=== PATIENT | male | born 1970 | race Two or more races ===

== ENCOUNTER 2017-09-14 12:00 | Emergency (ER) | payer MEDICAID ==
[~2017-09-14] VITALS: Ht 177.8 cm; Wt 90.7 kg
[~2017-09-14 12:00] MED LIST: IBUP800T24; PANTOPRAZOLE
[2017-09-14 12:14] VITALS: BP 154/87
[2017-09-14] MEDS ORDERED: KETOROLAC TROMETH 60MG/2ML VIAL IM ONE (14:30)
[2017-09-14] MEDS ORDERED: diphenhdrAMINE HCL 50 MG/1 ML VL IM ONE (14:30)
== END 2017-09-14 15:02 | disposition home or self-care (01) ==
LOC: EDBD 12:00 → ER 12:00
DX: G89.29 Other chronic pain (principal); M54.5 Low back pain; I10 Essential (primary) hypertension
CPT/HCPCS: 96372; 99284; J1200; J1885

== ENCOUNTER 2019-05-27 11:59 | Inpatient (IN) | payer MEDICAID | END 2019-05-30 15:00 | disposition home or self-care (01) | LOC: ER 11:59 → OVERFLOW 12:00 → EAST 18:26 | DX: K52.9 Noninfective gastroenteritis and colitis, unspecified (principal); R56.9 Unspecified convulsions; D72.829 Elevated white blood cell count, unspecified; R73.9 Hyperglycemia, unspecified; I10 Essential (primary) hypertension; F32.9 Major depressive disorder, single episode, unspecified; K44.9 Diaphragmatic hernia without obstruction or gangrene; N40.0 Benign prostatic hyperplasia without lower urinary tract symptoms; M54.9 Dorsalgia, unspecified; Z90.49 Acquired absence of other specified parts of digestive tract ==

== ENCOUNTER 2025-08-06 10:22 | Emergency (ER) | payer MEDICAID ==
[~2025-08-06] VITALS: Ht 193 cm; Wt 97.8 kg
[~2025-08-06 10:22] MED LIST changes: -IBUP800T24; +PANT40TA2 PO
[2025-08-06 10:24] VITALS: TEMP 98.2
--- NOTE | 2025-08-06 10:58 | ED.PDOC ---
Back pain HPI HPI Comments 54 y/o M, with PMHx of chronic back pain s/p lumbar fusion 10 years ago, HTN, prostate ca s/p resection in remission, and seizures presents to the ED for CC of back pain. Patient states, he suffers from chronic back pain d/t anterior and posterior spinal fusion >10 years ago, which has now been exacerbated in the last x3days. Patient reports, pain to be on his left-lumbar spine radiating to his groin area and left leg. Patient endorses, pain has caused him to be unable to ambulate, although he has been ambulating with a cane at baseline. Patient endorses, currently having a pain management doctor; takes Morphine TID as needed. He called his pain management doctor who instructed him to come to the ED for further evaluation. Patient denies any new trauma, injury, or falls. No other symptoms or modifying factors are present at this time. He denies any bowel/bladder incontinence, chest pain, shortness of breath, nausea, vomiting, saddle anesthesia, urinary symptoms. Chief Complaint: Back Pain Time Seen by MD: 10:50 Primary Care Provider: NONE Reviewed Notes: Nurses Notes, Medications, Allergies Allergies: Coded Allergies: NO KNOWN ALLERGIES (Unverified , 03/23/12) Home Meds Active Scripts Pantoprazole Sodium Sesquihydr (Protonix) 40 Mg Tab, 40 MG PO DAILY, #30 TAB Prov:JOSEFA BROWN MD 05/30/19 Reported Medications [Pantoprazole] 40 MG No Conflict Check 03/23/12 Information Source: Patient Mode of Arrival: Wheelchair Timing: Days Duration: Since onset Location of Back pain: (L) Lumbar Severity: Moderate Prehospital treatment: None Onset: Spontaneous History of: Chronic Back Pain Modifying Factors: Nothing Associated signs and symptoms: None Past Medical History PAST MEDICAL HISTORY: Depression, HTN, Seizures Surgical History: Cholecystectomy, Hernia Repair Family History Family History: Reviewed,noncontributory to illness Social History Smoker: Non-Smoker Alcohol: Denies ETOH Use Drugs: Denies Drug Use Lives In: Home Constitutional: denies: chills, diaphoresis, fatigue, fever, malaise, sweats, weakness, others EENTM: denies: blurred vision, double vision, ear bleeding, ear discharge, ear drainage, ear pain, ear ringing, eye pain, eye redness, hearing loss, mouth pain, mouth swelling, nasal discharge, nose bleeding, nose congestion, nose pain, photophobia, tearing, throat pain, throat swelling, voice changes, others Respiratory: denies: cough, hemoptysis, orthopnea, SOB at rest, shortness of breath, SOB with excertion, stridor, wheezing, others Cardiovascular: denies: chest pain, dizzy spells, diaphoresis, Dyspnea on exertion, edema, irregular heart beat, left arm pain, lightheadedness, palpitations, PND, syncope, others Gastrointestinal: denies: abdomen distended, abdominal pain, blood streaked bowels, constipated, diarrhea, dysphagia, difficulty swallowing, hematemesis, melena, nausea, poor appetite, poor fluid intake, rectal bleeding, rectal pain, vomiting, others Genitourinary: denies: burning, dysuria, flank pain, frequency, hematuria, incontinence, penile discharge, penile sore, pain, testicle pain, testicle swell ing, urgency, others Neurological: denies: dizziness, fainting, headache, left sided numbness, left sided weakness, numbness, paresthesia, pre-existing deficit, right sided numbness, right sided weakness, seizure, speech problems, tingling, tremors, weakness, others Musculoskeletal: reports: back pain; denies: gout, joint pain, joint swelling, muscle pain, muscle stiffness, neck pain, others Integumetry: denies: bruises, change in color, change in hair/nails, dryness, laceration, lesions, lumps, rash, wounds, others Allergic/Immunocompromised: denies: Difficulty Healing, Frequent Infections, Hives, Itching, others Hematologic/Lymphatic: denies: anemia, blood clots, easy bleeding, easy bruising, swollen glands, others Endocrine: denies: excessive hunger, excessive sweating, excessive thirst, excessive urination, flushing, intolerance to cold, intolerance to heat, unexplained weight gain, unexplained weight loss, others Psychiatric: denies: anxiety, bipolar disorder, depression, hopeless, panic disorder, schizophrenia, sleepless, suicidal, others All Other Systems: Reviewed and Negative Physical Exam General Appearance: Mild Distress, No Apparent Distress, Normal HEENT: Normal ENT Inspection, Pharynx Normal Neck: Full Range of Motion, Non-Tender, Normal, Normal Inspection Respiratory: Chest Non-Tender, Lungs Clear, No Accessory Muscle Use, No Resp iratory Distress, Normal Breath Sounds Cardiovascular: No Edema, No Murmur, No Gallop, Normal Peripheral Pulses, Regular Rate/Rhythm Breast Exam: Deferred Gastrointestinal: No Organomegaly, Non Tender, No Pulsatile Mass, Normal Bowel Sounds, Soft Genitalia: Deferred Pelvic: Deferred Rectal: Deferred Extremities: No calf tenderness, Normal capillary refill, Normal inspection, Normal range of motion, Non-tender, No pedal edema Musculoskeletal : Location: Left Extremity Location: Back Apperance: Tenderness (left-lumbar perispinal tenderness, no midline tenderness) Neurologic: Alert, advertising agent II-XII nml as Tested, No Motor Deficits, Normal Affect, Normal Mood, No Sensory Deficits Cerebellar Function: Normal Reflexes: Normal Skin: Dry, Normal Color, Warm Lymphatic: No Adenopathy Was a procedure done? Was a procedure done?: No Back Pain Differential Dx Differential Diagnosis: Fracture, Musculoskeletal Pain, Urinary Tract Infection X-Ray, Labs, Meds, VS Vital Signs Date Time Temp Pulse Resp B/P (MAP) Pulse Ox O2 Delivery O2 Flow Rate FiO2 08/06/25 14:17 111 19 142/93 08/06/25 11:40 111 19 142/93 08/06/25 10:24 98.2 140 18 150/101 99 98.2 Lab Test 08/06/25 14:00 Range/Units Urine Color Light-yellow Yellow Urine Clarity Clear Clear Urine pH 7.5 5.0-9.0 Urine Specific Rawson 1.014 1.001-1.035 Urine Protein Negative Negative Urine Ketones Negative Negative Urine Blood Negative Negative /uL Urine Nitrite Negative Negative Urine Bilirubin Negative Negative Urine Urobilinogen Normal Negative mg/dL Urine Leukocyte Esterase Negative Negative /uL Urine RBC 1 0 - 3 /hpf Urine Microscopic WBC 1 0-3 /HPF Urine Squamous Epithelial Cells None seen <5 /hpf Urine Bacteria None seen None Seen /hpf Urine Glucose Normal Normal mg/dL Current Medications Medications (Trade) Dose Ordered Sig/Sheryl Route Start Time Stop Time Status Last Admin Lidocaine (Lidoderm 5% Topical Patch) 1 patch ONCE ONCE TOP 08/06/25 11:00 08/06/25 11:01 DC 08/06/25 11:42 Morphine Sulfate 4 mg ONCE ONCE IM 08/06/25 11:30 08/06/25 11:31 DC 08/06/25 11:40 Ketorolac Tromethamine (Toradol Injection) 15 mg ONCE ONCE IM 08/06/25 14:00 08/06/25 14:01 DC 08/06/25 14:[address] [address] Ph: [phone] DIAGNOSTIC IMAGING Diagnostic Imaging Report : [id number] Signed PATIENT: PORTIA WONG ACCT: [id number] UNIT: [id number] : 1970 LOC: ER ROOM / BED: / AGE / SEX: 54 / M ADM STATUS: REG ER SERVICE 1054 ORDERING PHYSICIAN: MELVIN LUIS MD PROCEDURE(s): LS2CT - LS SPINE WO CONTRAST REASON: L low back pain ORDER NUMBER(s): [id number], ACCESSION NUMBER(s): [id number] EXAM: CT LS SPINE WO CONTRAST HISTORY: L low back pain COMPARISON: None CTDIvol 30 mGy, DLP 1047.5 mGy*cm. TECHNIQUE: Multiple axial CT images of the spine were obtained using bone algorithm. Axial and coronal reformatting was done. Bone and soft tissue windows were reviewed. FINDINGS: No evidence of definite acute fracture, spinal dislocation, or significant appearing acute subluxation is seen. Multilevel degenerative changes of the spine. Multilevel posterior spinal fixation hardware involving L3 to L5. Anterior cervical spinal fixation hardware at L4. Intervertebral disc spacer material at L3-L4, L4-L5 and L5-S1. IMPRESSION: No definite CT evidence of acute fracture or dislocation of the bony lumbar spine. ATED BY: JIM GODFREY MD DICTATED DATE/TIME: 08/06/25 1137 SIGNED BY: JIM GODFREY MD SIGNED DATE/TIME: 08/06/25 113 CC: X-Ray, Labs, Meds, VS Comment Patient with a history of chronic back pain status post lumbar fusion, prostate cancer and radiation presents with acute low back pain, normal neuro exam, no red flags, uncomfortable-appearing. Patient tachycardic on arrival, likely secondary to pain Urinalysis to evaluate for hematuria or infection Considered blood work (including CBC/CMP/Mag) due to (risk of disseminated infection/possibility of anemia/concern for electrolyte abnormality/patient regarding request), but no blood work performed due to (concern for trauma blood draws/difficulty in obtaining will dress/patient improvement after intervention/patient regarding declined). CT spine to evaluate for evidence of epidural abscess/cauda equina/acute fracture/acute spinal emergency due to patient's presenting symptoms IM pain meds Lidocaine patch Re-evaluate Social determinant surveillance affecting care: Social determinants of health that will affect the patient's care: Poor health literacy (additional time provided an explanation) Drug abuse (provided counseling discussed risks of substance abuse) Alcohol abuse (provided counseling discussed risks of substance abuse) Psychiatric illness poorly controlled (additional time providing in explanations) Poor access to outpatient care/followup (provided outpatient resources) Lack of transportation (arrange transportation as needed) Homelessness (provided resources) Time of 1ST Reevaluation: 11:20 Reevaluation 1ST: Unchanged Patient Education/Counseling: Diagnosis, Treatment Family Education/Counseling: No Family Present SEPSIS Sepsis Screen Date sepsis recognized/suspect: Aug 06, 2025 Time Sepsis recognized/suspect: 1027 Recent Procedure: No On Antibiotic Therapy: No Respiratory Rate >20: No Heart Rate >90: Yes Temp<36 C (96.8 F) or >38.3 C: No SBP <90 or MAP <65 mmHG: No New Acute Mental Status Change: No Is the patient on CPAP, BIPAP,: No Physician Orders Ls Spine Wo Contrast (08/06/25 10:54) Vital Signs Date Time Temp Pulse Resp B/P (MAP) Pulse Ox O2 Delivery O2 Flow Rate FiO2 08/06/25 14:17 111 19 142/93 08/06/25 11:40 111 19 142/93 08/06/25 10:24 98.2 140 18 150/101 99 98.2 Medications Medications Dose Ordered Sig/Sheryl Route Start Time Stop Time Status Last Admin Dose Admin Ketorolac Tromethamine 15 mg ONCE ONCE IM 08/06/25 14:00 08/06/25 14:01 DC 08/06/25 14:09 Lidocaine 1 patch ONCE ONCE TOP 08/06/25 11:00 08/06/25 11:01 DC 08/06/25 11:42 Morphine Sulfate 4 mg ONCE ONCE IM 08/06/25 11:30 08/06/25 11:31 DC 08/06/25 11:40 Departure 1 Departure Time of Disposition: 15:05 (On reassessment, patient's symptoms now much improved. Tachycardia resolved while in the ED. Discussed with patient need for outpatient follow-up with his spine surgeon for further evaluation of his chronic pain. Urinalysis shows no infection. Given strict return precautions and PMD follow-up.) Impression: Primary Impression: Lumbar sprain Qualified Codes: S33.5XXA - Sprain of ligaments of lumbar spine, initial encounter Additional Impressions: Lumbar radiculopathy acute back pain Disposition: HOME / SELF CARE / HOMELESS Condition: Stable e-Prescriptions Cyclobenzaprine HCl (Cyclobenzaprine Hydrochlo) 5 Mg Tab 5 MG PO TIDPRN PRN for 7 Days, #21 TAB Prov: MELVIN LUIS MD 08/06/25 Discharged With: Self Critical Care Note Critical Care Time?: No Stability Stability form required: No Heart Score Heart Score: Heart Score Response (Comments) Value History N/A 0 EKG N/A 0 Age N/A 0 Risk Factors N/A 0 Troponin N/A 0 Total 0 I personally scribed for MELVIN LUIS MD ([email or web address]) on 08/06/25 at 10:58. Electronically submitted by Gavi Schulz ([email or web address]). I personally scribed for MELVIN LUIS MD ([email or web address]) on 08/06/25 at 12:38. Electronically submitted by Gavi Schulz ([email or web address]). MELVIN LUIS MD Aug 06, 2025 10:58
[2025-08-06] MEDS ORDERED: MORPHINE SULFATE INJ 2 MG/ml SYRG IM ONE (11:00)
[2025-08-06] MEDS: MORPHINE SULFATE 4 MG/ML SYR/VIAL ONE (11:29)
[2025-08-06 11:33] VITALS: PULSE 116; RESP 17; O2SAT 98
--- NOTE | 2025-08-06 11:39 | DVH ---
EXAM: CT LS SPINE WO CONTRAST HISTORY: L low back pain COMPARISON: None CTDIvol 30 mGy, DLP 1047.5 mGy*cm. TECHNIQUE: Multiple axial CT images of the spine were obtained using bone algorithm. Axial and coronal reformatting was done. Bone and soft tissue windows were reviewed. FINDINGS: No evidence of definite acute fracture, spinal dislocation, or significant appearing acute subluxation is seen. Multilevel degenerative changes of the spine. Multilevel posterior spinal fixation hardware involving L3 to L5. Anterior cervical spinal fixation hardware at L4. Intervertebral disc spacer material at L3-L4, L4-L5 and L5-S1. IMPRESSION: No definite CT evidence of acute fracture or dislocation of the bony lumbar spine.
[2025-08-06] MEDS: MORPHINE SULFATE 4 MG/ML SYR/VIAL IM ONE (11:40)
[2025-08-06] MEDS: LIDOCAINE 5% TOPICAL PATCH TOP ONE (11:42)
[2025-08-06] MEDS: KETOROLAC TROMETH 60MG/2ML VIAL IM ONE (14:09)
[2025-08-06 14:17] LABS: Urine Protein, UAD Negative (Negative)
[2025-08-06] MEDS ORDERED: CYCL-614 PO (15:08)
[2025-08-06 16:51] VITALS: BP 133/92; PULSE 90; RESP 14; O2SAT 96
== END 2025-08-06 16:51 | disposition home or self-care (01) ==
LOC: ER 10:22
DX: S33.5XXA Sprain of ligaments of lumbar spine, initial encounter (principal); M54.16 Radiculopathy, lumbar region; M54.50 Low back pain, unspecified; F32.A Depression, unspecified; I10 Essential (primary) hypertension; Z79.899 Other long term (current) drug therapy; Z98.890 Other specified postprocedural states; Z90.49 Acquired absence of other specified parts of digestive tract; X58.XXXA Exposure to other specified factors, initial encounter; Y93.89 Activity, other specified; Y92.89 Other specified places as the place of occurrence of the external cause; Y99.8 Other external cause status
CPT/HCPCS: 72131; 81001; 96372; 99285; J1885; J2270